=== PATIENT | female | born 1990 | race African-American/Black ===

== ENCOUNTER 2018-07-27 04:35 | Emergency (ER) | payer SELFPAY ==
[~2018-07-27] VITALS: Ht 160 cm; Wt 80.5 kg
[2018-07-27 04:41] VITALS: BP 127/76
--- NOTE | 2018-07-27 04:49 | NUR ---
PT AMBULATED TO BED #1
--- NOTE | 2018-07-27 04:50 | NUR ---
PT PRESENTS TO ED WITH NASAL CONGETIONS, NON-PRODUCTIVE COUGH, AND RASH X1 WK. LUNGS CLEAR BILAT THROUGHOUT. AFEBRILE. VSS. REDNESS OVER BILAT CHEECKS, BEHIND BILAT EARS, AND OVER TRUNK. NO OPEN AREAS. PT STATES ITCHING. ER MD AWARE. CONTINUE TO MONITOR.
--- NOTE | 2018-07-27 04:50 | NUR ---
PT REFUSED FLU SWAB. JOSE LUIS SWEENEY MADE AWARE
[2018-07-27 05:30] VITALS: BP 127/76
--- NOTE | 2018-07-27 05:30 | NUR ---
PT DISCHARGED WITHOUT ORDERS. SEEN BY DR DIAZ. PT REFUSED FURTHER TREATMENT OR REPEAT VS'S. PT REQUESTING PHENERGAN WITH CODEINE BUT REFUSING EVALUATION OR TESTING. D/C INSTRUCTION GIVEN VERBALLY BY DR DIAZ. PT VERBALIZED UNDERSTANDING. Addendum: 07/27/18 at 0535 by [facility] PT DISCHARGED WITHOUT ORDERS. SEEN BY DR DIAZ. PT REFUSED FURTHER TREATMENT OR REPEAT VS'S. PT REQUESTING PHENERGAN WITH CODEINE BUT REFUSING EVALUATION OR TESTING. D/C INSTRUCTION GIVEN VERBALLY BY DR DIAZ. PT VERBALIZED UNDERSTANDING. ACCOMPANIED BY BROTHER.
== END 2018-07-27 05:36 | disposition home or self-care (01) ==
LOC: MED 04:35
DX: J20.9 Acute bronchitis, unspecified (principal); F17.210 Nicotine dependence, cigarettes, uncomplicated
CPT/HCPCS: 99283